=== PATIENT | male | born 1990 | race Caucasian/White ===

== ENCOUNTER → 2017-02-08 | Outpatient (CLI) | payer BC ==
--- NOTE | 2017-02-08 11:25 | KCIC ---
RS Compliance Statement: One or more of the following individualized dose reduction techniques were utilized for this examination: 1. Automated exposure control 2. Adjustment of the mA and/or kV according to patient size 3. Use of iterative reconstruction technique EXAMINATION: CT of the paranasal sinuses without contrast 02/08/2017 10:00 AM HISTORY:Recurrent acute sinusitis TECHNIQUE: CT of the paranasal sinuses was performed using sinus protocol without contrast COMPARISON: None available FINDINGS: Review of the topogram demonstrates no abnormalities. The frontal sinuses are normal. There is mild mucosal thickening involving the ethmoid air cells, predominantly the left anterior ethmoid air cells. There is mild mucosal thickening involving the left maxillary sinus. The right maxillary sinus is well aerated. There is a small right sphenoid mucus retention cyst. Right ostiomeatal unit is patent. The left ostiomeatal unit is occluded by mucosal thickening. The nasal septum is at midline. No areas of bony erosion are identified. The orbits are normal. Limited view of the frontal lobes is normal. IMPRESSION: 1. Mild mucosal thickening involving the ethmoid air cells and left maxillary sinus. Left ostiomeatal unit is occluded by mucosal thickening. No osseous erosions are identified. 2. Small mucus retention cyst identified in the right sphenoid sinus. Electronically signed by: Nickie Mcmillan MD (02/08/2017 11:22 AM) [place] [id number]
== END | disposition home or self-care (01) ==
LOC: KCIC CT 10:36
PROVIDERS: ATTEND Otolaryngology
DX: J01.81 Other acute recurrent sinusitis (principal); J34.1 Cyst and mucocele of nose and nasal sinus
CPT/HCPCS: 70486